=== PATIENT | male | born 1935 | race Two or more races ===

== ENCOUNTER 2018-06-12 09:05 | Outpatient (CLI) | payer OTHER | END 2018-06-12 09:18 | disposition home or self-care (01) | LOC: LAB 09:05 | DX: J06.9 Acute upper respiratory infection, unspecified (principal) ==

== ENCOUNTER 2018-06-12 09:36 | Outpatient (CLI) | payer OTHER | END 2018-06-12 09:38 | disposition home or self-care (01) | LOC: RAD 09:36 | DX: R07.89 Other chest pain (principal) ==

== ENCOUNTER 2021-06-14 11:10 | Outpatient (CLI) | payer OTHER | END 2021-06-14 11:18 | disposition home or self-care (01) | LOC: RAD 11:10 | PROVIDERS: ATTEND General Practice | DX: M54.59 Other low back pain (principal); F17.200 Nicotine dependence, unspecified, uncomplicated ==

== ENCOUNTER 2021-06-14 12:00 | Outpatient (CLI) | payer OTHER | END 2021-06-14 12:30 | disposition home or self-care (01) | LOC: PPH VACUNA 12:00 | PROVIDERS: ATTEND Emergency Medicine Pediatric Emergency Medicine | DX: Z23 Encounter for immunization (principal) ==

== ENCOUNTER 2021-10-01 08:44 | Outpatient (CLI) | payer OTHER | END 2021-10-01 08:45 | disposition home or self-care (01) | LOC: NUCLEAR 08:44 | PROVIDERS: ATTEND General Practice | DX: I73.9 Peripheral vascular disease, unspecified (principal); I82.210 Acute embolism and thrombosis of superior vena cava ==

== ENCOUNTER 2021-10-04 08:37 | Outpatient (CLI) | payer OTHER | END 2021-10-04 08:39 | disposition home or self-care (01) | LOC: NUCLEAR 08:37 | PROVIDERS: ATTEND General Practice | DX: I73.9 Peripheral vascular disease, unspecified (principal); I82.210 Acute embolism and thrombosis of superior vena cava ==

== ENCOUNTER → 2022-01-17 | Outpatient (CLI) | payer OTHER | END | disposition home or self-care (01) | LOC: RAD 10:41 | PROVIDERS: ATTEND Internal Medicine Cardiovascular Disease | DX: R06.00 Dyspnea, unspecified (principal) ==

== ENCOUNTER 2022-01-21 09:48 | Outpatient (CLI) | payer OTHER | END 2022-01-21 09:49 | disposition home or self-care (01) | LOC: NUCLEAR 09:48 | DX: G45.1 Carotid artery syndrome (hemispheric) (principal) ==

== ENCOUNTER 2022-02-11 11:46 | Emergency (ER) | payer OTHER | END 2022-02-11 13:30 | disposition left against medical advice (07) | LOC: ER 11:46 | DX: Z53.21 Procedure and treatment not carried out due to patient leaving prior to being seen by health care provider (principal) ==

== ENCOUNTER 2022-07-01 11:12 | Outpatient (CLI) | payer OTHER | END 2022-07-01 11:29 | disposition home or self-care (01) | LOC: TOM 11:12 | PROVIDERS: ATTEND Psychiatry & Neurology Clinical Neurophysiology | DX: G30.1 Alzheimer's disease with late onset (principal); F01.50 Vascular dementia, unspecified severity, without behavioral disturbance, psychotic disturbance, mood disturbance, and anxiety ==